=== PATIENT | female | born 2000 | race African-American/Black ===

== ENCOUNTER 2021-06-09 01:49 | Emergency (ER) | payer OTHER, SELFPAY ==
--- NOTE | ~2021-06-09 | XR_ITS ---
EXAMINATION: XR chest 2V 06/09/2021 02:51 INDICATION: Cough PROCEDURE: 2 view chest COMPARISON: No prior studies for comparison. FINDINGS: The lungs are clear. The cardiomediastinal silhouette is within normal limits. There are no pleural effusions. There is no pneumothorax suspected. IMPRESSION: 1: NO ACUTE CARDIOPULMONARY DISEASE. Reviewed, dictated and finalized at location A.
[2021-06-09 01:51] VITALS: BP 129/77; PULSE 115; RESP 22; TEMP 36.2; O2SAT 98
[2021-06-09 01:59] VITALS: O2SAT 98
--- NOTE | 2021-06-09 02:07 | ECG_ITS ---
Measurements Intervals Radiant Rate: 101 P: 72 ID: [id number] QRS: 81 QRSD: 81 T: 41 QT: 322 QTc: 418 Interpretive Statements SINUS TACHYCARDIA POSSIBLE LEFT ATRIAL ENLARGEMENT [-0.1mV P WAVE IN V1/V2] POSSIBLE RIGHT VENTRICULAR CONDUCTION DELAY [RSR (QR) IN V1/V2] NONSPECIFIC T-WAVE ABNORMALITY ABNORMAL ECG NO PREVIOUS ECG AVAILABLE FOR COMPARISON Electronically Signed On 06-09-2021 15:52:56 CDT by Jese Richards M.D.
--- NOTE | 2021-06-09 02:07 | ED.URI ---
HPI - URI/Sore Throat General Chief Complaint: Shortness of Breath/Dyspnea Stated Complaint: DIFF BREATHING WITH STABBING CP SUDDEN ON SET Time Seen by Provider: 06/09/21 01:57 Source: patient Mode of arrival: EMS Limitations: no limitations History of Present Illness HPI Narrative: Patient is a 20-year-old female complaining of cough, wheezing, nasal congestion, shortness of breath and left chest wall pain that started tonight after smoking weed. Patient states that her cough has been ongoing since yesterday, productive, clear sputum. Patient left chest wall pain is sharp, nonradiating, 4 out of 10 started tonight. Patient denies any abdominal pain, nausea, vomiting, diaphoresis, fever or chills. Review of Systems Review of Systems: All systems reviewed & are unremarkable except as noted in HPI and below Constitutional: Constitutional: Denies body ache(s), Denies chills, Denies excessive sweating, Denies fatigue, Denies fever(s), Denies headache(s), Denies lethargy, Denies malaise, Denies weakness and Denies weight loss Eyes: Eyes: Denies blurry vision, Denies change in vision and Denies loss of vision ENT: Denies dizziness, Denies ear discharge, Denies headache(s), Denies lip swelling, Denies epistaxis, Denies neck pain, Denies throat swelling and Denies tongue swelling Cardiovascular: Cardiovascular: Denies diaphoresis, Denies rapid heart rate, Denies edema, Denies irregular heart rhythm, Denies lightheadedness, Denies palpitations and Denies dyspnea on exertion Respiratory: Respiratory: Denies chest congestion, Denies hemoptysis and Denies dyspnea on exertion Gastrointestinal: Gastrointestinal: Denies abdominal pain, Denies melena, Denies hematochezia, Denies diarrhea, Denies nausea, Denies vomiting and Denies hematemesis Musculoskeletal: Musculoskeletal: Denies abnormal gait, Denies deformity, Denies joint swelling, Denies limited range of motion, Denies neck pain and Denies numbness Neurologic: Denies Abnormal speech present, Denies abnormal gait, Denies confusion, Denies dizziness, Denies headache(s), Denies focal weakness, Denies loss of vision, Denies numbness, Denies Other visual disturbances, Denies Sensory deficit (Neuro) and Denies weakness Psychiatric: Psychiatric: Denies confusion, Denies depression, Denies auditory hallucinations, Denies homicidal ideation and Denies suicidal ideation Endocrine: Endocrine: Denies cold intolerance, Denies excessive sweating, Denies fatigue, Denies heat intolerance and Denies palpitations Hematologic/Lymphatic: Hematologic/Lymphatic: Denies easy bleeding and Denies easy bruising Allergic/Immunologic: Allergic/Immunologic: Denies lip swelling, Denies throat swelling and Denies tongue swelling PMFSH Comments Past medical history: None Family history: Unknown Social history: Non-smoker, no EtOH use, occasional marijuana use Exam Const: General: cooperative, healthy appearing, comfortable, no acute distress, well developed, alert and awake; No confusion Orientation/consciousness: oriented to person, oriented to place, oriented to time, patient oriented x3 and No confusion Limitations: no limitations HENMT: Head: normal to inspection, normocephalic and atraumatic Ears: hearing grossly normal bilaterally, TM normal on the right and TM normal on the left General nose exam: Normal external nose present, Normal nares present and No nasal discharge present Face and sinus: normal facial exam Mouth: Yes Normal oral and palatal mucosa present, Yes lip normal, Yes tongue normal and Yes oropharynx normal Throat: posterior oropharynx normal, tonsils normal and uvula midline Eyes: General: appearance normal, both eyes and all related structures Pupils: Equal, round and reactive pupils present EOM: EOMs intact bilaterally Neck: Neck: normal visual inspection, full ROM, no lymphadenopathy and no meningeal signs Chest: Chest palpation & inspection: normal inspection of the chest Resp: Effort & Inspec
[2021-06-09 02:15] LABS: Basophils Percent Auto 0.4 % (0.2-1.2); Eosinophils Absolute Auto 0.5 K/mm3 (0-0.3); Eosinophils Percent Auto 7.2 % (0-4.4); Hematocrit 40.5 % (37.0-47.0); Hemoglobin 12.4 g/dL (12.0-15.0); Immature Granulocyte Absolute 0.02 K/mm3 (0.00-0.031); Immature Granulocyte Percent A 0.3 % (0-0.5); Lymphocytes Absolute Auto 2.64 K/mm3 (0.9-3.2); Lymphocytes Percent Auto 37.5 % (18.3-44.2); Mean Corpuscular HGB Conc 30.6 g/dl (32-36); Mean Corpuscular Hemoglobin 26.2 pg (26-34); Mean Corpuscular Volume 85.6 fl (80-100); Mean Platelet Volume 10.4 fl (7.4-10.4); Monocytes Absolute Auto 0.6 K/mm3 (0.1-0.6); Monocytes Percent Auto 8.4 % (2.6-8.5); Neutrophils Absolute Auto 3.3 K/mm3 (1.3-6.7); Neutrophils Percent Auto 46.2 % (45.5-73.1); Platelet Count Result 244 k/mm3 (150-375); Red Blood Count 4.73 M/mm3 (4.2-5.4); Red Cell Distribution Width 15.5 % (11.5-14.5)
[2021-06-09 02:19] VITALS: PULSE 121; RESP 26
[2021-06-09] MEDS: IPRATROPIUM BR 0.02% INH SOLN 0.5 MG/2.5 ML VIAL INHALATION (02:19)
[2021-06-09 02:24] LABS: Anion Gap 8 mmol/L (8-16); Blood Urea Nitrogen 8 mg/dL (7-17); Carbon Dioxide 26 mmol/L (22-30); Chloride 109 mmol/L (98-107); Estimated Glomerular Filt Rate > 60; Glucose 131 mg/dL (65-110); Potassium 3.4 mmol/L (3.4-5.0); Sodium 143 mmol/L (137-145)
[2021-06-09 02:26] VITALS: PULSE 109; RESP 23
[2021-06-09 02:35] LABS: Troponin I < 0.012 ng/mL (0.000-0.034)
[2021-06-09 02:36] LABS: INR 1.1; Prothrombin Time 13.8 Seconds (11.1-14.7)
[2021-06-09 02:37] LABS: Partial Thromboplastin Time 28.6 SECONDS (22.3-36.8)
[2021-06-09 02:44] LABS: D Dimer 0.27 ug/mL (<0.48)
== END 2021-06-09 03:09 | disposition home or self-care (01) ==
PROVIDERS: Emergency Provider Emergency Medicine
DX: J06.9 Acute upper respiratory infection, unspecified (principal); J98.01 Acute bronchospasm; R07.89 Other chest pain; R00.0 Tachycardia, unspecified; R94.31 Abnormal electrocardiogram [ECG] [EKG]
CPT/HCPCS: 36415; 71046; 80048; 84484; 85025; 85380; 85610; 85730; 93005; 94640; 99284